=== PATIENT | male | born 1975 | race Caucasian/White ===

== ENCOUNTER 2024-08-13 16:44 | Inpatient (IN) | payer OTHER ==
[2024-08-13 17:20] VITALS: BMI 22.2
[2024-08-13] MEDS ORDERED: diazePAM 5 MG TABLET PO PRN (17:39)
[2024-08-13] MEDS ORDERED: ACETAMINOPHEN 325 MG TABLET (FP) PO PRN (17:39)
[2024-08-13] MEDS ORDERED: BISMUTH SUBSALICYLATE 524 MG/30 ML PO PRN (17:39)
[2024-08-13] MEDS ORDERED: IBUPROFEN 600 MG TABLET (FP) PO PRN (17:39)
[2024-08-13] MEDS ORDERED: LOPERAMIDE HCL 2 MG CAPSULE PO PRN (17:39)
[2024-08-13] MEDS ORDERED: BENZOCAINE/MENTHOL (CHLORASEPTIC ) LOZENGE MM PRN (17:39)
[2024-08-13] MEDS ORDERED: IBUPROFEN 400 MG TABLET (FP) PO PRN (17:39)
[2024-08-13] MEDS ORDERED: guaiFENesin 600 MG TABLET.ER (FP) PO PRN (17:39)
[2024-08-13] MEDS ORDERED: DICYCLOMINE HCL 10 MG CAPSULE PO PRN (17:39)
[2024-08-13] MEDS ORDERED: ONDANSETRON *ODT* 4 MG TABLET SL PRN (17:39)
[2024-08-13] MEDS ORDERED: BENZONATATE 200 MG CAPSULE PO PRN (17:39)
[2024-08-13] MEDS ORDERED: MAG HYDROX/AL HYDROX/SIMETH 30 ML UNIT-DOSE CUP PO PRN (17:39)
[2024-08-13] MEDS ORDERED: MAGNESIUM HYDROX 2400MG/30ML ORAL SUSPENSION 30 ML CUP PO PRN (17:39)
[2024-08-13] MEDS ORDERED: POLYETHYLENE GLYCOL (HEALTHYLAX) 3350 17 GM PACKET PO PRN (17:39)
[2024-08-13] MEDS ORDERED: NALOXONE (NARCAN) HCL 4 MG/0.1 ML SPRAY NS PRN (17:39)
[2024-08-13] MEDS: METHOCARBAMOL 500 MG TABLET PO PRN (22:26)
[2024-08-13] MEDS: THIAMINE 100 MG TABLET PO SCH (22:26)
[2024-08-13] MEDS: MELATONIN 5 MG TABLETS PO SCH (22:26)
[2024-08-13] MEDS: hydrOXYzine PAMOATE 25 MG CAPSULE (FP) PO PRN (22:27)
[2024-08-13] MEDS: diazePAM 5 MG TABLET PO SCH (22:27)
[2024-08-14] MEDS: PRENATAL VITAMINS W/ FOLIC ACID TABLET (FP) PO SCH (10:11)
[2024-08-14 12:34] LABS: HEMATOCRIT 45.9 % (35.4-49); HEMOGLOBIN 15.5 GM/dL (11.7-16.9); MCH 30.4 pg (25.7-33.7); MCHC 33.7 g/dl (32.0-35.9); MEAN CELL VOLUME 90.1 fl (80-96); MEAN PLT VOLUME 8.3 fl (7.5-11.1); PLATELET COUNT 228 10^3/uL (134-434); RDW 14.5 % (11.9-15.9); WHITE BLOOD COUNT 4.5 K/mm3 (4.0-10.0)
[2024-08-14 12:36] LABS: CHLORIDE 104 mmol/L (98-107); POTASSIUM 4.1 mmol/L (3.5-5.1); SODIUM 140 mmol/L (136-145)
[2024-08-14 12:55] LABS: CALCIUM 9.7 mg/dL (8.5-10.1)
[2024-08-14 12:56] LABS: ALBUMIN 3.8 g/dl (3.4-5.0); ANION GAP 7 mmol/L (4-13); BLOOD UREA NITROGEN 7.3 mg/dL (7-18); CO2 30 mmol/L (21-32); GLUCOSE,RANDOM 96 mg/dL (74-106)
[2024-08-14 12:59] LABS: CREATININE 0.9 mg/dL (0.55-1.3); SGOT/AST 30 U/L (15-37); SGPT/ALT 31 U/L (13-61)
[2024-08-14 13:00] LABS: BILIRUBIN,TOTAL 1.2 mg/dL (0.2-1)
[2024-08-14 13:01] LABS: TOT PROT 7.2 g/dl (6.4-8.2)
[2024-08-14 13:02] LABS: ALK PHOS 96 U/L (45-117)
[2024-08-14] MEDS ORDERED: PRAZOSIN HCL 1 MG CAPSULE PO SCH (22:00)
[2024-08-14] MEDS ORDERED: QUEtiapine FUMARATE 50 MG TABLET PO SCH (22:00)
[2024-08-14] MEDS: PRAZOSIN HCL 1 MG CAPSULE PO SCH (22:11)
[2024-08-14] MEDS: QUEtiapine FUMARATE 50 MG TABLET PO SCH (22:12)
[2024-08-15] MEDS: diazePAM 5 MG TABLET PO SCH (05:25)
[2024-08-15] MEDS: PARoxetine HCL 10 MG TABLET PO SCH (10:21)
[2024-08-16] MEDS: diazePAM 5 MG TABLET PO SCH (05:31)
[2024-08-16] MEDS: NALOXONE (NYS OPIOID OVERDOSE PROGRAM) 4 MG/0.1 ML SPRAY NS SCH (08:40)
[2024-08-17] MEDS: diazePAM 5 MG TABLET PO ONE (05:17)
[2024-08-18 08:54] VITALS: BP 107/74; PULSE 103; RESP 18; TEMP 97.3
== END 2024-08-18 11:38 | disposition other institution (70) | DRG 775 ==
LOC: YASAS 16:44 → Y3N 17:56
PROVIDERS: ADMIT Allergy & Immunology; ATTEND Family Medicine Addiction Medicine
PROC: HZ2ZZZZ Detoxification Services for Substance Abuse Treatment (ICD-10-PCS; principal; 2024-08-13)
DX: F10.230 Alcohol dependence with withdrawal, uncomplicated (principal); F43.10 Post-traumatic stress disorder, unspecified; F32.A Depression, unspecified; G47.00 Insomnia, unspecified
CPT/HCPCS: 36415; 71046-TC-FY; 80053; 80305; 80307; 85027; 86780; 87811; 93005; 93010